=== PATIENT | female | born 1950 | race Caucasian/White ===

== ENCOUNTER 2017-03-03 12:21 | Emergency (ER) | payer BC, SELFPAY ==
--- NOTE | 2017-03-03 14:42 | CT ---
NONCONTRAST HEAD CT: Date: 03/03/17 HISTORY: Patient fell [place] curb yesterday at airport [employer], hit her head, and had three minutes of loss of cons ciousness. COMPARISON: 03/10/11. TECHNIQUE: A noncontrast head CT is performed from the skull base to the skull vertex. FINDINGS: No parenchymal hemorrhage or extra-axial hematoma. No midline shift. Basilar cisterns are patent. Br ain volume is age-appropriate. Cortical rose-white matter differentiation is preserved. Ventricles a nd sulci are patent and symmetric. Hypodensities along the anterior limb of the left internal capsule may represent an age-indeterminat e lacunar infarct. There is a remote lacunar infarct in the head of the right caudate nucleus. Intact calvarium. Adequate aeration of the sinuses and mastoid air cells. IMPRESSION: 1. No intracranial post-traumatic sequelae. 2. Stable hypodensity inferior to the posterior limb of left internal capsule. POS: [facility]
--- NOTE | 2017-03-03 14:51 | CT ---
MAXILLOFACIAL CT WITHOUT CONTRAST: Date: 03/03/17 HISTORY: Patient [place] curb [place] airport and hit head. Loss of consciousness for three minutes. Left orbit b ruising. COMPARISON: None. TECHNIQUE: Maxillofacial CT is performed in the axial plane. Reformatted images are submitted for interpretatio n. FINDINGS: There is adequate aeration of the visualized paranasal sinuses and mastoid air cells. On the coronal reformatted images, ostiomeatal complexes are patent. Nasal septum is intact. The osseous margins of the orbits and sinuses are maintained. Symmetric attenuation of the optic ner ves and ocular rectus muscles. Bilaterally, retrobulbar fat is preserved. There is minimal left supr aorbital and periorbital soft tissue swelling. Midline fatty raphe of the tongue is preserved. No obvious masses in the oral cavity. Epiglottis has a normal caliber. There is no prevertebral soft tissue swelling. The maxilla and mandible are intact. No fracture. Bilateral zygomatic arches are also intact. IMPRESSION: Minimal left periorbital soft tissue swelling. Left ocular lens is appropriately located. Bilaterall y, retrobulbar fat is preserved. POS: [facility]
--- NOTE | 2017-03-03 15:10 | RAD ---
FOUR VIEWS LEFT ELBOW: History: Fall, injury, pain. Comparison: None. FINDINGS: Joint spaces are preserved. No malalignment. No fracture. IMPRESSION: Unremarkable left elbow four views. POS: [facility]
--- NOTE | 2017-03-03 16:20 | CT ---
CT CERVICAL SPINE WITH CORONAL AND SAGITTAL REFORMATIONS 03/03/17 HISTORY: Fall with trauma to the head with loss of consciousness. Left arm pain and headache. FINDINGS/IMPRESSION: There is loss of cervical lordosis with straightening of the cervical spine. There is mild wedging i nvolving the superior end plate of C7 vertebral body likely old fracture. No retropulsion or associ ated soft tissue swelling is seen. There is no evidence of subluxation. Degenerative changes are mos t prominent at C6-7 level. POS: [facility]
== END 2017-03-03 15:24 | disposition home or self-care (01) ==
LOC: SCSER 12:21
DX: S00.12XA Contusion of left eyelid and periocular area, initial encounter (principal); S50.02XA Contusion of left elbow, initial encounter; I10 Essential (primary) hypertension; J45.909 Unspecified asthma, uncomplicated; F41.9 Anxiety disorder, unspecified; F32.9 Major depressive disorder, single episode, unspecified; W01.198A Fall on same level from slipping, tripping and stumbling with subsequent striking against other object, initial encounter
CPT/HCPCS: 70450; 70486; 72125

== ENCOUNTER 2017-08-18 08:24 | Outpatient (CLI) | payer MEDICARE ==
[2017-08-18] MEDS ORDERED: Lidocaine 1% PF 10 ML AMP ONE (09:00)
[2017-08-18] MEDS ORDERED: Iopamidol 300 61% 50 ML VIAL FS ONE (09:00)
[2017-08-18] MEDS ORDERED: EPINEPHrine 1 MG/ML AMP ONE (09:00)
[2017-08-18] MEDS ORDERED: Sodium Chloride 0.9% 50 ML BAG ONE (09:00)
--- NOTE | 2017-08-18 11:53 | RAD ---
LEFT HIP ARTHROGRAM: INDICATIONS: Left hip joint pain. FLUOROSCOPIC TIME: 0.5 minutes. TOTAL EXPOSURE: 8.277 Gy per cm2. TECHNIQUE: Informed consent was obtained. Pre-procedure accounts executive images were performed. The site overlying the le ft hip was marked. The site was prepped and draped in the usual sterile fashion. Buffered 1% Lidoca ine was administered to the overlying subcutaneous tissues. Under fluoroscopic guidance, a 22 gauge spinal needle was guided down into the left hip joint. There was opacification of the left hip joint utilizing approximately 10 mL of a diluted Isovue solution. The patient tolerated the injection wit hout difficulty. FINDINGS: There is mild degenerative arthrosis of the left hip. No acute osseous abnormality is evident. Mild enthesopathic change is seen off the anterior pelvis. IMPRESSION: Successful left hip arthrogram. POS: [facility]
--- NOTE | 2017-08-18 12:06 | CT ---
CT ARTHROGRAM OF THE LEFT HIP: INDICATIONS: Left hip pain. COMPARISON: Left hip arthrogram dated 08/18/2017. TECHNIQUE: Multiple CT images were obtained of the left hip following the intraarticular injection of diluted Ga dolinium solution. FINDINGS: There is a partial thickness tear involving the posterior-superior acetabular labrum, best seen on im ages 55 and 56 of the coronal series. This is also present on image 62 of the sagittal series. The articular cartilage of the acetabulum and the superior femoral head appear intact. No large full-thi ckness defect is evident. There is some mild enthesopathic change off the greater trochanter. There is some contrast extension into the left iliopsoas bursa, likely through communication with the left hip joint. There is some mild muscular atrophy of the left gluteus minimus. There is incidental no te of colonic diverticulosis. No free fluid is identified. There is some vacuum disk phenomenon and degenerative change involving the left SI joint. IMPRESSION: 1. Partial-thickness tear of the posterior-superior acetabular labrum. 2. No large full-thickness chondral defect is evident. 3. Colonic diverticulosis. 4. Mild left sacroiliac joint osteoarthrosis. 5. Mild left gluteus minimus muscular atrophy. POS: [facility]
== END 2017-08-18 08:25 | disposition home or self-care (01) ==
LOC: RAD 08:24
PROVIDERS: ATTEND Family Medicine
DX: M25.552 Pain in left hip (principal); S73.192A Other sprain of left hip, initial encounter; K57.30 Diverticulosis of large intestine without perforation or abscess without bleeding; M47.898 Other spondylosis, sacral and sacrococcygeal region; M62.58 Muscle wasting and atrophy, not elsewhere classified, other site
CPT/HCPCS: 27093; J0171; J7050

== ENCOUNTER 2018-04-23 09:14 | Outpatient (CLI) | payer MEDICARE ==
--- NOTE | 2018-04-23 11:53 | CT ---
CT LUMBAR SPINE WITHOUT CONTRAST: HISTORY: Acute lumbar spine pain. COMPARISON: None. TECHNIQUE: A noncontrast lumbar spine CT is performed in the axial plane. Reformatted images are submitted for interpretation. FINDINGS: The lung bases are clear. The visualized solid organs are grossly unremarkable. Evaluation is limited by lack of IV contrast a nd due to motion degradation. There is nonspecific calcification along the posterior aspect of the s pleen. Mild pancreatic atrophy is noted. The visualized mesentery and alimentary canal do not demonstrate any acute abnormality. Evaluation i s limited by technique. Diverticulosis is noted. No definite diverticulitis. No retroperitoneal mass, lymphadenopathy, or hematoma. Symmetric attenuation of the psoas muscles. There is a mild likely chronic compression fracture involving the superior aspect of T12. Schmorl's node at the superior endplate of T10, T11, and T12 are noted. There is no significant retropulsion a t the T12 level. With regard to the lumbar vertebrae, vertebral body height is maintained, and there is no fracture. Extensive osteophyte formation involving the anterior aspect of the distal thoracic and upper lumbar spine. There is mild hypertrophy of the posterior elements at L4-L5 and at L5-S1. Vacuum joint phenomenon i n the left facet at L4-L5. Vacuum disk phenomenon at L5-S1. There is 4 mm of anterolisthesis of L4 upon L5. Limited evaluation of the contents of the central spinal canal and neural foramina due to technique. T10-T11, T11-T12 and T12-L1 do not demonstrate any significant central canal stenosis. Mild to moder ate bilateral foraminal narrowing at T10-T11 and at T11-T12. Moderate bilateral foraminal narrowing at T12-L1. L1-L2: No high-grade central canal stenosis. The neural foramina are patent. L2-L3: No high-grade central canal stenosis. The neural foramina are patent. L3-L4: Generalized disk bulge, ligamentum flavum thickening, and facet hypertrophy result in mild to moderate central canal stenosis. Moderate bilateral foraminal narrowing L4-L5: Mild central canal stenosis. Mild to moderate right and mild left foraminal narrowing. L5-S1: Vacuum disk phenomenon. Generalized disk bulge results in at least mild central canal stenos is. Moderate bilateral foraminal narrowing. IMPRESSION: 1. Degenerative changes of the lumbar spine as above. 2. Presumed mild chronic compression fracture at T12. 3. No acute fractures are appreciated. POS: [facility]
== END 2018-04-23 09:15 | disposition home or self-care (01) ==
LOC: SCSCT 09:14
PROVIDERS: ATTEND Anesthesiology Pain Medicine
DX: M47.26 Other spondylosis with radiculopathy, lumbar region (principal); S22.089A Unspecified fracture of T11-T12 vertebra, initial encounter for closed fracture
CPT/HCPCS: 72131

== ENCOUNTER 2018-05-03 10:41 | Outpatient (CLI) | payer MEDICARE ==
--- NOTE | 2018-05-03 11:47 | ULT ---
RENAL ULTRASOUND: DATE: 05/03/2018. HISTORY: Poor urinary stream and frequent urination. TECHNIQUE: Multiplanar, rose scale sonographic imaging of the kidneys and urinary bladder obtained. FINDINGS: The right kidney measures 10.4 x 5.5 x 6.7 cm and the left kidney measures 10.0 x 5.7 x 6.2 cm. The urinary bladder volume is 49 cc. No renal mass, hydronephrosis, or renal stone noted on either side. The imaging of the urinary bladder is grossly unremarkable. IMPRESSION: Unremarkable renal ultrasound. POS: [facility]
== END 2018-05-03 10:42 | disposition home or self-care (01) ==
LOC: SCSULT 10:41
PROVIDERS: ATTEND Urology
DX: R39.12 Poor urinary stream (principal); R35.1 Nocturia; R31.29 Other microscopic hematuria; R35.0 Frequency of micturition
CPT/HCPCS: 76770

== ENCOUNTER 2018-05-05 15:21 | Outpatient (CLI) | payer MEDICARE | END 2018-05-05 15:22 | disposition home or self-care (01) | LOC: BICMAMMO 15:21 | PROVIDERS: ATTEND Obstetrics & Gynecology | DX: Z12.31 Encounter for screening mammogram for malignant neoplasm of breast (principal); R92.8 Other abnormal and inconclusive findings on diagnostic imaging of breast; N64.89 Other specified disorders of breast; R92.1 Mammographic calcification found on diagnostic imaging of breast | CPT/HCPCS: 77063; 77067 ==

== ENCOUNTER 2018-10-13 11:26 | Outpatient (CLI) | payer MEDICARE, OTHER ==
--- NOTE | 2018-10-13 11:58 | RAD ---
XR Shoulder Rt 3 View STANDARD HISTORY: Right shoulder pain x5 months COMPARISON: None. FINDINGS: Mild arthrosis of the AC joint is seen. Glenohumeral joint space is fairly unremarkable. Th e bones appear somewhat demineralized. IMPRESSION: Minimal arthritic changes of the shoulder.
--- NOTE | 2018-10-13 11:59 | RAD ---
XR Humerus Rt 2 View STANDARD HISTORY: Shoulder pain. Pain in humerus. COMPARISON: None. FINDINGS: The bones appear somewhat demineralized. There is no signs of fracture or other significant findings. IMPRESSION: Unremarkable right humerus.
--- NOTE | 2018-10-13 12:34 | ULT ---
VENOUS DOPPLER ULTRASOUND OF THE LEFT LOWER EXTREMITY 10/13/18 HISTORY: Left leg pain. TECHNIQUE: Christine scale ultrasound with color flow and spectral Doppler imaging of the deep venous system of the l eft lower extremity was performed. FINDINGS: There is good flow, compression and augmentation noted in the left common femoral, femoral, deep femo ral, popliteal and posterior tibial veins. There is absence of flow due to occlusive clot in the left greater saphenous vein from the mid-calf t o the mid-thigh. IMPRESSION: 1. No evidence of DVT of the left lower extremity. 2. Superficial vein thrombosis involving the greater saphenous vein from the mid-calf to the mid -thigh. CODE T POS: [facility]
== END 2018-10-13 11:27 | disposition home or self-care (01) ==
LOC: SCSULT 11:26
PROVIDERS: ATTEND Nurse Practitioner Family
DX: M79.605 Pain in left leg (principal); M25.511 Pain in right shoulder; M19.011 Primary osteoarthritis, right shoulder; I82.812 Embolism and thrombosis of superficial veins of left lower extremity

== ENCOUNTER 2018-10-22 07:01 | Outpatient (CLI) | payer MEDICARE ==
--- NOTE | 2018-10-22 10:17 | CT ---
CT Abdomen Pelvis W Con: 10/22/2018 12:00 AM CLINICAL INFORMATION: Abdominal pain for years with history diverticulitis. COMPARISON: 10/24/2016 TECHNIQUE: Multiple contiguous axial images were obtained and a CT of the abdomen and pelvis with IV contrast. Oral contrast was administered. Coronal reformats were performed. FINDINGS: Lower Chest: Small hiatal hernia; otherwise within normal limits. Abdomen: Liver: within normal limits. Bile Ducts: Normal caliber. Gallbladder: No calcified gallstones. Normal caliber wall. Pancreas: within normal limits. Spleen: Stable nonspecific hypodensity in the posterior spleen measuring 1.5 cm in size and associate d with 3 calcifications. Adrenals: within normal limits. Kidneys: within normal limits. Pelvis: Reproductive Organs: Status post hysterectomy. Ureters: within normal limits. Bladder: within normal limits. Peritoneum: No ascites or free air, no fluid collection. Bowel: Normal caliber. Numerous scattered diverticula in the left colon. Mesentery and Retroperitoneum: No enlarged mesenteric or retroperitoneal lymph nodes. Vessels: Normal. Abdominal Wall: within normal limits. Bones: Degenerative changes in the spine. IMPRESSION: 1. Diverticulosis without evidence of acute diverticulitis 2. Stable nonspecific splenic hypodensity. 3. Hiatal hernia
== END 2018-10-22 07:02 | disposition home or self-care (01) ==
LOC: SCSCT 07:01
PROVIDERS: ATTEND Physician Assistant Medical
DX: R10.32 Left lower quadrant pain (principal); D50.9 Iron deficiency anemia, unspecified; K57.90 Diverticulosis of intestine, part unspecified, without perforation or abscess without bleeding; K44.9 Diaphragmatic hernia without obstruction or gangrene; D73.89 Other diseases of spleen
CPT/HCPCS: 74177

== ENCOUNTER 2018-12-30 12:47 | Emergency (ER) | payer MEDICARE ==
[2018-12-30 13:17] LABS: Bilirubin Negative (Negative); Blood, Urine Negative (Negative); Clarity Clear (Clear); Glucose, Urine (Dipstick) Negative (Negative); Leukocyte Negative (Negative); Nitrite Negative (Negative); Protein, Urine (Dipstick) Negative (Neg-Trace)
[2018-12-30] MEDS ORDERED: Ondansetron PF 4 MG/2 ML Vial ONE (13:37)
[2018-12-30] MEDS ORDERED: Promethazine HCl 25 MG/ML VIAL ONE (13:46)
[2018-12-30 14:06] LABS: Hemoglobin 10.4 g/dL (12.0-16.0); Mean Corpuscular HGB CONC 31.8 g/dL (32.0-36.0); Mean Corpuscular Hemoglobin 27.8 pg (27.0-31.0); Mean Corpuscular Volume 87.5 fL (78.0-98.0); Mean Platelet Volume 9.8 fL (7.4-10.4); Platelet Count 215 thou/uL (130-400); RBC Distribution Width 16.8 % (11.5-14.5); Red Blood Cell (RBC) Count 3.75 mill/uL (4.20-5.40); White Blood Cell (WBC) Count 8.4 thou/uL (4.8-10.8)
[2018-12-30 14:08] LABS: ALT (SGPT) 14 U/L (8-55); AST (SGOT) 16 U/L (5-34); Albumin 3.8 g/dL (3.4-4.8); Alkaline Phosphatase 77 U/L (40-150); Anion Gap 17 mmol/L (10-20); BUN (Urea Nitrogen) 13 mg/dL (9.8-20.1); Bilirubin, Total 0.4 mg/dL (0.2-1.2); Calc. Creatinine Clearance 0 mL/min (70-130); Calcium 9.4 mg/dL (7.8-10.44); Carbon Dioxide 24 mmol/L (23-31); Chloride 104 mmol/L (98-107); Estimated GFR-MDRD 79; Globulin 3.1 g/dL (2.4-3.5); Glucose 108 mg/dL (80-115); Lipase 8 U/L (8-78); Protein, Total 6.9 g/dL (6.0-8.3); Sodium 140 mmol/L (136-145)
[2018-12-30 14:20] LABS: Band 1 % (5-11); Eosinophils 1 % (0-10); Hypochromia SLIGHT = 6-15 cells (100X) (0-5/hpf); Lymphocytes 21 % (21-51); MDiff Complete? YES; Monocytes 9 % (0-10); Neutrophil 68 % (42-75); Platelet Morphology Comment Appears Adequate
[2018-12-30] MEDS ORDERED: Ketorolac Tromethamine 30 MG/ML VIAL ONE (14:44)
[2018-12-30] MEDS ORDERED: Fentanyl 100 MCG/2 ML VIAL ONE (15:40)
--- NOTE | 2018-12-30 16:09 | CT ---
CT Abdomen Pelvis W Con History: Abdominal pain Comparison: CT abdomen and pelvis October 22, 2018 Findings: Mild scarring the lung bases. No pericardial effusion. The liver, gallbladder, spleen, adre nal glands are unremarkable. Small sliding hiatal hernia. Similar appearance of the peripheral posterior hypodensity of the spleen with peripheral calcificatio ns unchanged since 2009, a benign process. The aortoiliac contour is nonaneurysmal. No hydroureteronephrosis. Extensive diverticular disease of the sigmoid colon with active inflammation at the descending colon/sigmoid junction. No macro perforation. Trace free fluid in the pelvis. Advanced facet arthropathy lower lumbar spine. Impression: Acute uncomplicated sigmoid diverticulitis.
[2018-12-30] MEDS ORDERED: metroNIDAZOLE 500 MG/100 ML BAG ONE (16:35)
[2018-12-30] MEDS ORDERED: Cipro 250 MG TAB ONE (16:48)
== END 2018-12-30 18:00 | disposition home or self-care (01) ==
LOC: SCSER 12:47
DX: K57.32 Diverticulitis of large intestine without perforation or abscess without bleeding (principal); I10 Essential (primary) hypertension; J45.909 Unspecified asthma, uncomplicated; F41.9 Anxiety disorder, unspecified; F32.9 Major depressive disorder, single episode, unspecified; Z79.899 Other long term (current) drug therapy; Z79.82 Long term (current) use of aspirin
CPT/HCPCS: 74177; 80053; 81003; 83690; 85025; 96365; 96366; 96367; 96375; J1885; J2405; J2550; J3010

== ENCOUNTER 2019-01-07 12:14 | Emergency (ER) | payer MEDICARE ==
[2019-01-07 13:05] LABS: #Basophils 0.1 thou/uL (0.0-0.2); #Lymphocytes 1.4 thou/uL (1.20-3.40); #Monocytes 0.5 thou/uL (0.11-0.59); #Neutrophils 3.7 thou/uL (1.40-6.50); %Basophils 1.1 % (0.0-1.0); %Eosinophils 0.2 % (0.0-10.0); %Lymphocytes 24.7 % (21.0-51.0); %Monocytes 8.7 % (0.0-10.0); %Neutrophils 65.3 % (42.0-75.0); Hemoglobin 10.8 g/dL (12.0-16.0); Mean Corpuscular HGB CONC 32.3 g/dL (32.0-36.0); Mean Corpuscular Hemoglobin 28.2 pg (27.0-31.0); Mean Corpuscular Volume 87.3 fL (78.0-98.0); Mean Platelet Volume 8.8 fL (7.4-10.4); Platelet Count 202 thou/uL (130-400); RBC Distribution Width 17.2 % (11.5-14.5); Red Blood Cell (RBC) Count 3.82 mill/uL (4.20-5.40); White Blood Cell (WBC) Count 5.6 thou/uL (4.8-10.8)
[2019-01-07 13:10] LABS: INR-International Normal Ratio 1.3; PTT 30.3 SEC (22.9-36.1); Prothrombin Time 15.9 SEC (12.0-14.7)
[2019-01-07 13:20] LABS: ALT (SGPT) 17 U/L (8-55); AST (SGOT) 19 U/L (5-34); Albumin 3.7 g/dL (3.4-4.8); Alkaline Phosphatase 72 U/L (40-150); Anion Gap 13 mmol/L (10-20); BUN (Urea Nitrogen) 11 mg/dL (9.8-20.1); Bilirubin, Total 0.3 mg/dL (0.2-1.2); Calc. Creatinine Clearance 0 mL/min (70-130); Calcium 9.1 mg/dL (7.8-10.44); Carbon Dioxide 24 mmol/L (23-31); Chloride 105 mmol/L (98-107); Estimated GFR-MDRD 76; Globulin 3.2 g/dL (2.4-3.5); Glucose 111 mg/dL (80-115); Potassium 4.1 mmol/L (3.5-5.1); Protein, Total 6.9 g/dL (6.0-8.3); Sodium 138 mmol/L (136-145)
--- NOTE | 2019-01-07 13:56 | ULT ---
EXAM: Left lower extremity venous duplex: Deep veins evaluated with color Doppler, spectral analysis, and compression. INDICATIONS: Left lower extremity pain and edema. FINDINGS: Deep veins interrogated include common femoral vein, femoral vein, popliteal vein, and post erior tibial vein. These veins show normal compression and blood flow. No evidence of DVT. There is clot within the superficial vein system, involving greater saphenous vein at the level of th e mid thigh through the leg. IMPRESSION: No evidence of DVT. Superficial vein thrombus involving greater saphenous vein.
== END 2019-01-07 14:40 | disposition home or self-care (01) ==
LOC: SCSER 12:14
DX: I80.02 Phlebitis and thrombophlebitis of superficial vessels of left lower extremity (principal); D64.9 Anemia, unspecified; J45.909 Unspecified asthma, uncomplicated; F41.9 Anxiety disorder, unspecified; F32.9 Major depressive disorder, single episode, unspecified; I10 Essential (primary) hypertension; Z79.01 Long term (current) use of anticoagulants
CPT/HCPCS: 36415; 80053; 85025; 85610; 85730

== ENCOUNTER 2019-05-11 13:23 | Outpatient (CLI) | payer MEDICARE ==
--- NOTE | 2019-05-11 13:45 | MMO ---
Bilateral MAMMO Bilat Screen [id number]. CLINICAL HISTORY: Patient is 68 years old and is seen for screening. The patient has the following family history of breast cancer: mother, malignant (generic). The patient has no personal history of cancer. VIEWS: The views performed were: bilateral craniocaudal with tomosynthesis and bilateral mediolateral oblique with tomosynthesis. FILMS COMPARED: The present examination has been compared to prior imaging studies performed at [facility] on 06/10/2013, 07/10/2014, 08/13/2015 and 05/05/2018. This study has been interpreted with the assistance of computer-aided detection. MAMMOGRAM FINDINGS: There are scattered fibroglandular densities. Finding 1: There are stable benign appearing calcifications seen in both breasts. Finding 2: There is a stable focal asymmetry seen in the outer region of the left breast. There are no suspicious masses, suspicious calcifications, or new areas of architectural distortion. IMPRESSION: THERE IS NO MAMMOGRAPHIC EVIDENCE OF MALIGNANCY. A ROUTINE FOLLOW-UP MAMMOGRAM IN 1 YEAR IS RECOMMENDED. THE RESULTS OF THIS EXAM WERE SENT TO THE PATIENT. ACR BI-RADS Category 2 - Benign finding MAMMOGRAPHY NOTE: 1. A negative mammogram report should not delay a biopsy if a dominant of clinically suspicious mass is present. 2. Approximately 10% to 15% of breast cancers are not detected by mammography. 3. Adenosis and dense breasts may obscure an underlying neoplasm. Reported by: LAYO PIPER MD Electonically Signed: [id number]
== END 2019-05-11 13:24 | disposition home or self-care (01) ==
LOC: BICMAMMO 13:23
PROVIDERS: ATTEND Obstetrics & Gynecology
DX: Z12.31 Encounter for screening mammogram for malignant neoplasm of breast (principal); Z80.3 Family history of malignant neoplasm of breast
CPT/HCPCS: 77063; 77067

== ENCOUNTER 2019-05-12 08:34 | Outpatient (CLI) | payer MEDICARE ==
--- NOTE | 2019-05-12 10:07 | RAD ---
CHEST 2 VIEWS: HISTORY: Dyspnea. FINDINGS: Stable minimal cardiomegaly. Left ICD. No confluent pneumonia, overt edema, or pleural effusion. IMPRESSION: Stable mild cardiomegaly. Left implantable cardioverter defibrillator. Atherosclerosis of the aorta . No new process. POS: [facility]
== END 2019-05-12 08:35 | disposition home or self-care (01) ==
LOC: RAD 08:34
PROVIDERS: ATTEND Internal Medicine Critical Care Medicine
DX: R06.00 Dyspnea, unspecified (principal); I51.7 Cardiomegaly; I70.0 Atherosclerosis of aorta; Z95.810 Presence of automatic (implantable) cardiac defibrillator
CPT/HCPCS: 71046

== ENCOUNTER → 2020-04-04 | Day surgery (SDC) | payer MEDICARE, OTHER ==
[2020-04-03 11:47] VITALS: BMI 40.2
[~2020-04-04] MED LIST: Iopamidol-M 300 61% 15 ML VIAL ONE
[2020-04-04 08:13] VITALS: BP 190/89; TEMP 98.2
--- NOTE | 2020-04-04 09:27 | RAD ---
PROCEDURE: XR Myelogram 2 or More Regions PROVIDED CLINICAL HISTORY: Cervical radiculopathy. Headache. COMPARISON: None TECHNIQUE: The procedure including the risks and complications were explained to the patient, and informed conse nt was obtained. The patient was placed on the fluoroscopy table in the prone position. An area overlying the L2-3 level was marked, and the area was meticulously prepped and draped in usual steril e fashion. The skin and subcutaneous tissues were infiltrated with buffered 1% lidocaine for local anesthesia. U tilizing fluoroscopic guidance, a 22-gauge spinal needle was advanced into the thecal sac. The inner stylette was removed with a return of clear cerebral spinal fluid. Approximately 8 mL of Isovue 300 was instilled into the thecal sac. The inner stylette was replaced, and the needle was removed. Patient was placed in a right lateral decubitus position and then placed in Trendelenburg po sition. Contrast freely flowed to the level of the cervical spine. Dry sterile dressing was placed at puncture site overlying the L2-3 level. Patient was transported to CT for further imaging. The patient tolerated the procedure well and without immediate complication. Fluoroscopy: Time-0.9 minutes Dose-187 mcg meter squared FINDINGS: Nurse Research images of the cervical spine demonstrate degenerative changes at the C3-4 and C6-7 le vels with narrowing of the intervertebral disc spaces and osteophyte formation at these levels. Findings are greatest at the C6-7 level. Vertebral body heights are within normal limits, and no frac ture or subluxation is seen on provided images. Surgical clips overlie the region of the carotid arteries. Partial visualization of dual-lead left subclavian cardiac pacemaking device is noted. Nurse Research images of the lumbar spine were performed demonstrating multilevel osteophytes. A mild burst fr acture is seen involving the T12 vertebral body which was seen on prior CT lumbar spine on 04/23/201819. Grade 1 anterolisthesis of L4 on L5 is also again present. Narrowing of the intervertebral disc spaces involving the lower lumbar spine are present with facet degenerative changes also seen in the lower lumbar spine. A cervical myelogram was successfully performed with puncture at the L2-[address] scan c ervical spine for further details. IMPRESSION: 1. Remote burst fracture T12 vertebral body. 2. Degenerative changes in the cervical as well as lumbar spine. 3. Grade 1 anterolisthesis of L4 on L5. 4. Technically successful cervical myelogram with lumbar puncture.
--- NOTE | 2020-04-04 11:27 | CT ---
POST MYELOGRAM CERVICAL SPINE CT: Date: 04/04/2020 HISTORY: Cervical radiculopathy. COMPARISON: None. FINDINGS: Straightening of cervical lordosis is presumed to be positional. No craniocervical dissociation. Appr opriate alignment of the lateral masses of C1 and C2. Intact odontoid process. Chronic changes in the visualized lung parenchyma. No acute abnormality in the soft tissue neck struc tures. C2-C3: No significant central canal stenosis or significant neural foraminal narrowing. C3-C4: Moderate loss of disc space height. Broad based disc osteophyte complex with mild central can al stenosis. Moderate right and mild left neural foraminal narrowing due to uncovertebral hypertrophy . C4-C5: No significant central canal stenosis. Patent bilateral neural foramina. C5-C6: There is a central disc herniation which abuts the midline cord. Mild central canal stenosis. Patent bilateral neural foramina. C6-C7: Severe loss of disc space height with sclerosis and osteophyte formation. No significant cent ral canal stenosis. Patent bilateral neural foramina. C7-T1: No significant central canal stenosis or significant neural foraminal narrowing. IMPRESSION: Degenerative changes of the cervical spine as above. POS: [facility]
== END ==
LOC: RAD 07:31
PROVIDERS: ATTEND Physician Assistant Medical
PROC: B02B1ZZ Computerized Tomography (CT Scan) of Spinal Cord using Low Osmolar Contrast (ICD-10-PCS; principal; 2020-04-04)
DX: M50.122 Cervical disc disorder at C5-C6 level with radiculopathy (principal); M43.16 Spondylolisthesis, lumbar region; G47.30 Sleep apnea, unspecified; I10 Essential (primary) hypertension; F32.9 Major depressive disorder, single episode, unspecified; E78.5 Hyperlipidemia, unspecified; J45.909 Unspecified asthma, uncomplicated; L11.1 Transient acantholytic dermatosis [Grover]; I25.10 Atherosclerotic heart disease of native coronary artery without angina pectoris; H91.91 Unspecified hearing loss, right ear; Z79.82 Long term (current) use of aspirin; Z79.899 Other long term (current) drug therapy; Z88.2 Allergy status to sulfonamides; Z88.5 Allergy status to narcotic agent; Z95.0 Presence of cardiac pacemaker
CPT/HCPCS: 62305; 72126; Q9967

== ENCOUNTER 2021-09-09 14:16 | Outpatient (CLI) | payer MEDICARE | END 2021-09-09 14:17 | disposition home or self-care (01) | LOC: BICRAD 14:16 | PROVIDERS: ATTEND Podiatrist | DX: M19.072 Primary osteoarthritis, left ankle and foot (principal) ==

== ENCOUNTER 2021-12-12 17:00 | Outpatient (CLI) | payer MEDICARE, OTHER | END 2021-12-12 17:01 | disposition home or self-care (01) | LOC: SLEEPLAB 17:00 | PROVIDERS: ATTEND Internal Medicine Critical Care Medicine | DX: G47.33 Obstructive sleep apnea (adult) (pediatric) (principal); E66.9 Obesity, unspecified; R06.83 Snoring; G47.00 Insomnia, unspecified; Z68.31 Body mass index [BMI] 31.0-31.9, adult | CPT/HCPCS: 95800 ==

== ENCOUNTER 2023-10-13 07:43 | Outpatient (CLI) | payer MEDICARE, OTHER | END 2023-10-13 07:44 | disposition home or self-care (01) | LOC: MRI 07:43 | PROVIDERS: ATTEND Neurological Surgery | DX: G43.109 Migraine with aura, not intractable, without status migrainosus (principal); M47.812 Spondylosis without myelopathy or radiculopathy, cervical region; M50.222 Other cervical disc displacement at C5-C6 level; M50.322 Other cervical disc degeneration at C5-C6 level; M50.321 Other cervical disc degeneration at C4-C5 level; M50.31 Other cervical disc degeneration, high cervical region; M50.21 Other cervical disc displacement, high cervical region; M25.78 Osteophyte, vertebrae; M48.02 Spinal stenosis, cervical region; R90.82 White matter disease, unspecified | CPT/HCPCS: 70551; 72141 ==

== ENCOUNTER 2024-03-07 13:16 | Outpatient (CLI) | payer MEDICARE, OTHER | END 2024-03-07 13:17 | disposition home or self-care (01) | LOC: SCSRAD 13:16 | PROVIDERS: ATTEND Family Medicine | DX: S69.92XA Unspecified injury of left wrist, hand and finger(s), initial encounter (principal) ==